=== PATIENT | female | born 1945 | race Caucasian/White ===

== ENCOUNTER 2025-01-07 08:07 | Outpatient (CLI) | payer MEDICARE, MEDICAID ==
--- NOTE | 2025-01-07 10:06 | RADIOLOGY REPORT ---
RENAL ULTRASOUND History: HEMATURIA,UNSPECIFIED Comparison: None Technique: Multiple real-time sonographic images of the kidney and bladder were obtained in conjuncti on with Doppler imaging. Findings: The right kidney measures 11.4 cm and demonstrates no evidence of hydronephrosis, perinephric fluid c ollection, or shadowing stone. The left kidney measures 8.9 cm and demonstrates no evidence of hydronephrosis, perinephric fluid col lection, or shadowing stone. Left renal cystic lesion measuring 5 cm. Urinary bladder: Contracted, limiting evaluation. Volume of 23 cc. Impression: No sonographic evidence for hydronephrosis /nephrolithiasis. Left renal cyst measuring 5.0 cm. Contracted bladder.
== END 2025-01-07 23:59 | disposition home or self-care (01) ==
LOC: RAD 08:07
PROVIDERS: ATTEND Nurse Practitioner
DX: N28.1 Cyst of kidney, acquired (principal); N32.89 Other specified disorders of bladder; R31.9 Hematuria, unspecified
CPT/HCPCS: 76770